=== PATIENT | male | born 1970 ===

== ENCOUNTER 2020-09-02 15:57 | Outpatient (CLI) | payer OTHER | END 2020-09-02 15:59 | disposition home or self-care (01) | LOC: LAB 15:57 | PROVIDERS: ATTEND Physical Medicine & Rehabilitation | DX: R05 Cough (principal); R50.9 Fever, unspecified; R06.1 Stridor; R06.02 Shortness of breath; Z03.818 Encounter for observation for suspected exposure to other biological agents ruled out; Z20.822 Contact with and (suspected) exposure to COVID-19; Z11.52 Encounter for screening for COVID-19; M35.89 Other specified systemic involvement of connective tissue; M35.81 Multisystem inflammatory syndrome; J12.82 Pneumonia due to coronavirus disease 2019 ==

== ENCOUNTER 2020-09-21 14:08 | Outpatient (CLI) | payer OTHER | END 2020-09-21 14:22 | disposition home or self-care (01) | LOC: TOM 14:08 | PROVIDERS: ATTEND Specialist | DX: K59.01 Slow transit constipation (principal); K59.9 Functional intestinal disorder, unspecified ==

== ENCOUNTER 2021-04-07 09:00 | Outpatient (CLI) | payer OTHER | END 2021-04-07 09:15 | disposition home or self-care (01) | LOC: PPH VACUNA 09:00 | PROVIDERS: ATTEND Emergency Medicine Pediatric Emergency Medicine | DX: Z23 Encounter for immunization (principal) ==